=== PATIENT | male | born 2000 | race Hispanic/Latino ===

== ENCOUNTER 2025-05-10 18:31 | Emergency (ER) | payer SELFPAY ==
[2025-05-10] MEDS ORDERED: Acetaminophen 500 MG TAB ONE (19:04)
== END 2025-05-10 20:13 | disposition home or self-care (01) ==
LOC: NAV ERS 18:31
DX: S00.93XA Contusion of unspecified part of head, initial encounter (principal); R11.0 Nausea; F17.210 Nicotine dependence, cigarettes, uncomplicated; Z75.8 Other problems related to medical facilities and other health care; W22.8XXA Striking against or struck by other objects, initial encounter; Y99.0 Civilian activity done for income or pay
CPT/HCPCS: 70450; Q0162